=== PATIENT | female | born 1950 | race Caucasian/White ===

== ENCOUNTER → 2016-05-10 | Outpatient (CLI) | payer OTHER ==
[~2016-05-10] MED LIST: ASPIR 8181 MG PO; COZAAR DPS50 MG PO; FLEXERIL DPS5 MG PO; GLUCOPHAGE-DPS500 MG PO; HCTZ12.5 MG PO; LEVAQUIN750 MG PO; MEVACOR40 MG PO; TYLENOL EXTRA500 MG PO
== END | disposition home or self-care (01) ==
LOC: PTH.S 07:30
DX: E11.9 Type 2 diabetes mellitus without complications (principal)